=== PATIENT | female | born 1960 | race Caucasian/White ===

== ENCOUNTER 2019-02-06 11:30 | Observation (INO) ==
[2019-02-06] MEDS ORDERED: SALINE LOCK IV FLUID XX ONE (11:39)
[2019-02-06] MEDS ORDERED: TYLENOL PO PRN (11:39)
[2019-02-06] MEDS ORDERED: PHENERGAN IV PRN (11:39)
[2019-02-06] MEDS ORDERED: VANCOMYCIN IV PER PHARMACY MISC SCH (11:39)
[2019-02-06] MEDS ORDERED: SODIUM CHLORIDE 0.9% INJ PRN (11:39)
[2019-02-06 13:40] LABS: BASO# 0.01 X1000 (0.0-0.2); BASO% 0.1 % (0.0-0.8); HEMATOCRIT 34.3 % (37.0-47.0); HEMOGLOBIN 11.2 g/dL (12.0-16.0); LYMPH% 28.7 % (20.5-51.1); MCH 30.1 PG (27-31); MCHC 32.7 g/dL (33-37); MCV 92.2 FL (81-99); MONO# 0.59 X1000 (0.11-0.59); MONO% 7.7 % (1.7-9.3); MPV 8.7 FL (7.4-10.4); NEUT# 4.87 X1000 (1.4-6.5); NEUT% 63.5 % (42.2-75.2); PLT 405 X1000 (130-400); RBC 3.72 XMIL (4.2-5.4); RDW 12.1 % (11.5-14.5); WBC 7.67 X1000 (4.8-10.8)
[2019-02-06 13:56] LABS: ESTIMATED GFR > 60
[2019-02-06 13:59] LABS: AGAP 16; BUN 9 mg/dL (8-22); CHLORIDE 89 mmol/L (98-107); COSMO 262; CREATININE 0.8 mg/dL (0.5-0.9); GLUCOSE 144 mg/dL (70-104); POTASSIUM 4.1 mmol/L (3.5-5.1); SODIUM 130 mmol/L (136-145); TCO2 25 mmol/L (25-35)
[2019-02-06] MEDS: LEVAQUIN 500 MG/D5W 500 MG/100 ML IVPB IV SCH (14:03)
[2019-02-06] MEDS: LOVENOX SUBQ SCH (14:04)
--- NOTE | 2019-02-06 16:10 | Diag Imaging Result Doc PS360 ---
3 PHASE BONE SCAN - 02/06/2019 INDICATION: ULCERS ON FEET, RECURRENT CELLULITIS TECHNIQUE: Three phase bone scan of the feet COMPARISON: X-rays from 02/05/2019 FINDINGS: There is significantly increased perfusion and blood pool phase activity at the anterior left forefoot. This is centered around the second toe. There is also moderately intense blood pool phase uptake at the mid tarsal joints of the right foot. On the delayed phase images, there is intense uptake at all the mid tarsal joints of the right foot. There is also significant intense uptake at the lateral side of the mid tarsal joints of the left foot. There is no significant uptake at the anterior left foot on the delayed phase images. IMPRESSION: 1. 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 2. Cellulitis of the left forefoot centered around the second toe. No evidence of osteomyelitis here. Electronically signed by Crow Sellers 02/06/2019 4:07 PM
[2019-02-06] MEDS: VANCOMYCIN 2,000 MG in NS 500 ML IV SCH (16:33)
[2019-02-06] MEDS: GLUCOTROL PO SCH (17:16)
[2019-02-06] MEDS: PRAVACHOL PO SCH (20:30)
[2019-02-06] MEDS: REQUIP PO SCH (20:30)
[2019-02-06] MEDS: LOPID PO SCH (20:30)
[2019-02-06] MEDS: COREG PO SCH (20:30)
[2019-02-07] MEDS ORDERED: PRILOSEC PO SCH (07:00)
[2019-02-07] MEDS: CALTRATE 600 PO SCH (08:51)
[2019-02-07] MEDS: LOPID PO SCH ×2 (08:51→20:05)
[2019-02-07] MEDS: ACCUPRIL PO SCH (08:52)
[2019-02-07] MEDS: DYAZIDE PO SCH (08:52)
[2019-02-07] MEDS: ACTOS PO SCH (08:52)
[2019-02-07] MEDS: GLUCOTROL PO SCH ×2 (08:52→16:29)
[2019-02-07] MEDS: LEXAPRO PO SCH (08:52)
[2019-02-07] MEDS: COREG PO SCH ×2 (08:53→20:05)
--- NOTE | 2019-02-07 09:44 | PROGRESS NOTE ---
DATE: 02/07/2019 Ms. Martin was admitted to [facility] with cellulitis of the left lower extremity. She has diabetic foot ulcers on the plantar aspect of the left foot and the lateral aspect of the 5th digit on the right foot. Wound cultures are pending. She has significantly less swelling, erythema and warmth in the left foot and leg. A bone scan demonstrated severe degenerative arthritic changes suggestive of Charcot's foot but there was no evidence of osteomyelitis. Blood pressure is well controlled. Systolic blood pressures range from 120 to 135 whereas her diastolic blood pressures are in the 60s. She has a history of type 2 dwk-[id number]-wzoeqosjo diabetes mellitus complicated by polyneuropathy. Her blood sugars are fluctuating. Blood sugars are ranging from 115 to 177. OBJECTIVE: Vital Signs: Temperature 98.8 degrees, pulse 74, respirations 121/61. CV: Regular rate and rhythm. Lungs: Clear. Abdomen: Soft, nontender, with active bowel sounds. Extremities: There is a diabetic foot ulcer on the plantar aspect of the left foot and on the lateral aspect of the 5th digit of the right foot. Neurologic: She has diminished light touch in the distal extremities bilaterally. ASSESSMENT AND PLAN: 1. Cellulitis of the left foot. Clinically, she is better. We will continue Zosyn 4.5 g IV q.6 hours pending wound and blood cultures. I appreciate the consultation by wound care and we will continue daily wound care. 2. Hypertension. Blood pressure is stable. I will continue her on her current regimen of medications. 3. Type 2 noninsulin-dependent diabetes mellitus complicated by polyneuropathy. We will continue an 1800 calorie ADA diet, pattern sugars, and her regular home medicines. Perhaps she would benefit from medicines like Victoza or Trulicity. cc: Meghan Chowdary MD
[2019-02-07] MEDS: LOVENOX SUBQ SCH (10:55)
[2019-02-07] MEDS: LEVAQUIN 500 MG/D5W 500 MG/100 ML IVPB IV SCH (11:01)
--- NOTE | 2019-02-07 12:19 | ORTHOPAEDICS CONSULTATION ---
DATE: 02/07/2019 CHIEF COMPLAINT: Bilateral cellulitis. HISTORY OF PRESENT ILLNESS: Ms. Martin is a 58-year-old female who has been a patient of mine in the past and she was doing well last time I saw her several months ago. Unfortunately, she has developed some ulcers on her feet and they have recently gotten very red. She came to the hospital and was admitted per the hospitalist, and placed on IV antibiotics. It sounds like since she has already been on IV antibiotics, the swelling has gone down a pretty significant amount. PAST MEDICAL HISTORY: Diabetes. ALLERGIES: Hydrocodone and penicillins. MEDICATIONS: Per the medical record. REVIEW OF SYSTEMS: Positive for bilateral lower extremity swelling and diabetic foot ulcers. PHYSICAL EXAMINATION: General: Ms. Martin was lying in bed, no acute distress this morning. Head and Neck: Normocephalic, atraumatic. Respirations: Nonlabored breathing. Cardiovascular: Regular rate. Abdomen: Nondistended. Left Lower Extremity Examination: I took the dressing down. There was a little bit of faint erythema to the forefoot. She still had a little bit of swelling, mainly involving the third toe. There is an ulcer plantarly. It does not probe deep. There was just a little bit of drainage that was there. Right Lower Extremity Examination: Not as much swelling on the right side as on the left but she did have a little bit to the forefoot. She has a forefoot plantar ulceration there as well and it does not go deep either. ASSESSMENT: 1. Bilateral diabetic foot ulcers. 2. Bilateral lower extremity cellulitis. PLAN: Ms. Martin is going to remain on IV antibiotics. At this point, I do not think we need to pursue any surgical intervention. Her bone scan came back positive for some degenerative changes in the midfoot but no definite forefoot osteomyelitis. We will have her on IV antibiotics and then she can follow up with me in clinic once she is discharged from the hospital. cc: MD Meghan Lopez MD
[2019-02-07] MEDS: VANCOMYCIN 2,000 MG in NS 500 ML IV SCH (16:16)
[2019-02-07] MEDS: PRAVACHOL PO SCH (20:05)
[2019-02-07] MEDS: REQUIP PO SCH (20:05)
[2019-02-08] MEDS: ACCUPRIL PO SCH (09:35)
[2019-02-08] MEDS: ACTOS PO SCH (09:36)
[2019-02-08] MEDS: LEXAPRO PO SCH (09:36)
[2019-02-08] MEDS: COREG PO SCH (09:36)
[2019-02-08] MEDS: LOPID PO SCH (09:36)
[2019-02-08] MEDS: DYAZIDE PO SCH (09:36)
[2019-02-08] MEDS: CALTRATE 600 PO SCH (09:37)
[2019-02-08] MEDS: GLUCOTROL PO SCH (09:37)
[2019-02-08 11:36] VITALS: BP 96/64
[2019-02-08] MEDS: LOVENOX SUBQ SCH (12:12)
[2019-02-08] MEDS ORDERED: CLEOCIN PO SCH (14:00)
--- NOTE | 2019-02-09 14:50 | DISCHARGE SUMMARY ---
ADMISSION DATE: 02/06/2019 DISCHARGE DATE: 02/08/2019 DISCHARGE DIAGNOSES: 1. Cellulitis of the left lower extremity. 2. Diabetic foot ulcers. 3. Essential hypertension. 4. Type 2 [id number]-bozfjttgh diabetes mellitus complicated by diabetic polyneuropathy. 5. Post procedural hypothyroidism. 6. Mixed hyperlipidemia. 7. Gastroesophageal reflux disease without esophagitis. 8. Restless legs syndrome. DISCHARGE INSTRUCTIONS: 1. Return to clinic in one week to see me, Dr. Kervin Chowdary. 2. Activity as tolerated. 3. 1800 calorie ADA diet 4. Medications: Actos 30 mg daily, glipizide 5 mg b.i.d., Tylenol 650 mg q. 6 hours as needed for pain, Cleocin 300 mg q. 6 hours for 2 weeks, triamterene hydrochlorothiazide 37.5/25 mg 1 p.o. daily, Accupril 20 mg daily, Lexapro 20 mg daily, Caltrate 600 Plus D b.i.d., pravastatin 40 mg at bedtime, carvedilol 3.125 mg b.i.d., Lopid 600 mg b.i.d., Requip 2 mg b.i.d., omeprazole 20 mg daily. DISCHARGE PHYSICAL EXAMINATION: This is a well-developed, well nourished, 58-year-old white female in no apparent distress. She is afebrile. Pulse 70, respirations 18, BP 106/62. CV: Regular rate and rhythm. Lungs: Clear. Abdomen: Soft, nontender, with active bowel sounds. No hepatosplenomegaly. No abdominal bruits. Extremities: She has a left plantar diabetic ulcer measuring 1.9 x 1.7 x 1.1 cm. There is no discharge. There is also a right lateral 5th plantar diabetic ulcer measuring 2.1 x 2.0 x 0.3 cm. Hypergranulation tissue is present. No sloughing of tissue. Neurologic: She is alert and oriented to name, place, and time. Cranial nerves 2-12 intact grossly. Cerebellar function including [id number] was intact. She has diminished light touch in the distal extremities bilaterally. Mrs. Maldonado Martin has bilateral diabetic ulcers as described above. She presented to the office complaining of increasing redness and swelling in association with low-grade temperature in the left foot. We did not appreciate any purulent discharge from the plantar diabetic ulcer. We admitted her to [facility] where we treated her with broad-spectrum antibiotics including Zosyn and vancomycin pending wound cultures and blood cultures. Wound and blood cultures demonstrated methicillin sensitive Staph aureus. Cherrie Aleman, who is the wound care nurse, saw the patient on a daily basis and provided daily wound care. The wounds were cleaned with Vashe. Aquagel was then applied and a Telfa pad was placed on the wound and was then wrapped in Kerlix. A limited bone scan of the lower extremities demonstrated no evidence of osteomyelitis. The cellulitis improved significantly with intravenous antibiotics and reached a point where we felt we could safely transition her to oral medications. Because of her allergies and sensitivities, we started her on clindamycin 300 mg q. 6 hours for 2 weeks. She will have followup in the wound care clinic and is also scheduled to see Dr. Jacob as an outpatient. She does have a history of type 2 [id number]-wkezckewv diabetes mellitus complicated by polyneuropathy. She has ulcers on both feet. She has peripheral neuropathy. There are no obvious toe abnormalities. I believe that she would greatly benefit from diabetic shoes. Having reached maximum hospital benefit, the patient was discharged in stable condition. cc: Meghan Chowdary MD
== END 2019-02-08 14:17 | disposition home or self-care (01) ==
LOC: DIRADM → 4N 11:30
PROVIDERS: ADMIT Internal Medicine; ATTEND Internal Medicine